=== PATIENT | male | born 1955 | race Caucasian/White ===

== ENCOUNTER 2017-02-04 08:33 | Day surgery (SDC) | payer MEDICARE ==
[~2017-02-04] VITALS: Ht 177.8 cm; Wt 75.6 kg
[2017-02-04] MEDS ORDERED: IOHEXOL 350 MG/ML 100 ML BTL (for Cath Lab) OTHER ONE (08:34)
[2017-02-04] MEDS ORDERED: IOHEXOL 350 MG/ML 50 ML BTL (for Cath Lab) OTHER ONE (08:34)
[2017-02-04] MEDS ORDERED: SODIUM CHLORIDE FLUSH BID IV FLUSH SCH (09:00)
[2017-02-04] MEDS ORDERED: SODIUM CHLOR 0.9% 1000 ML INJ 1,000 ML IV SCH (09:00)
[2017-02-04] MEDS ORDERED: SODIUM CHLORIDE FLUSH PRN IV FLUSH (09:00)
[2017-02-04] MEDS ORDERED: ROSU20 PO (09:10)
[2017-02-04] MEDS ORDERED: EZET10 PO (09:10)
[2017-02-04] MEDS ORDERED: LISI20TA PO (09:10)
[2017-02-04] MEDS ORDERED: NITR0.4S SL (09:10)
[2017-02-04] MEDS ORDERED: ASPI81TA23 PO (09:10)
[2017-02-04] MEDS ORDERED: MULT-65 PO (09:10)
[2017-02-04] MEDS ORDERED: PROZ20CA11 PO (09:10)
[2017-02-04] MEDS ORDERED: PLAV75TA29 PO (09:10)
[2017-02-04 09:12] VITALS: BP 131/79; PULSE 67; RESP 16; TEMP 98; O2SAT 99
[2017-02-04 09:24] LABS: AUTOMATED NEUTROPHIL # 10.3 TH/MM3 (1.8-7.7); BASOPHIL # 0.1 TH/MM3 (0-0.2); BASOPHIL % 0.5 % (0.0-2.0); EOSINOPHIL # 0.2 TH/MM3 (0-0.4); EOSINOPHIL % 1.6 % (0.0-4.0); HEMATOCRIT 42.8 % (39.0-51.0); HEMO FLAGS DIFF FINAL; LYMPH % 12.8 % (9.0-44.0); LYMPHOCYTE # 1.7 TH/MM3 (1.0-4.8); MEAN CELL VOLUME 90.7 FL (80.0-100.0); MEAN CORPUSCULAR HEMOGLOBIN 30.1 PG (27.0-34.0); MEAN CORPUSCULAR HGB CONC 33.2 % (32.0-36.0); MONO % 6.8 % (0.0-8.0); NEUT % 78.3 % (16.0-70.0); PLATELET COUNT 168 TH/MM3 (150-450); RED BLOOD COUNT 4.72 MIL/MM3 (4.50-5.90); RED CELL DISTRIBUTION WIDTH 13.8 % (11.6-17.2); WHITE BLOOD COUNT 13.1 TH/MM3 (4.0-11.0)
[2017-02-04 09:37] LABS: APTT (PATIENT) 29.1 SEC (24.3-30.1); INTERNATIONAL NORMALIZED RATIO 0.9 RATIO; PROTHROMBIN TIME - PATIENT 10.4 SEC (9.8-11.6)
[2017-02-04 09:50] LABS: BICARBONATE 28.4 MEQ/L (21.0-32.0)
[2017-02-04] MEDS ORDERED: HEPARIN-NS/PF INJ 1,000 ML ONE (11:14)
[2017-02-04] MEDS ORDERED: MIDAZOLAM HCL 2 MG/2 ML VIAL ONE (11:15)
[2017-02-04] MEDS ORDERED: HEPARIN SODIUM - IV 10,000 UNITS/10 ML VIAL ONE (11:24)
--- NOTE | 2017-02-04 12:34 | CATHPROC ---
[employer] HIS Report Study Information Study Number Admission Scheduled Start Study Start [id number] Feb 04 2017 8:33AM 02/04/2017 Feb 04 2017 11:08AM [place] Service Cath Endovascular Study Admit Source Facility Department Other [facility] - [facility] Supervisor Physician and Clinical Staff Initial Pastor Blue Gristmiller Silvana Pope BSN Recorder Adrianna Willingham,RT(R) (BS) Scrub David Irvin,RT(R) Procedures Performed Procedure Location (Site) Vessel Name Wire insertion Fem Art (left) Femoral Art Equipment Time Media Buyer Description Size Mfg Part Number Used/Scraped [id number] 11:57 ANGIO-DYNAMICS OMNI FLUSH 65CM CATHETER FR 5 Used *[id number] INTRODUCER SET, 11:50 [employer] FR 5 [id number] *[id number] Used MICROPUNCTURE, STIFFENED 532-113 11:46 CORDIS/ ARBEN RIM SUPER TORQUE CATHETER FR 5 Used *[id number] 11:25 MALLINCKRODT SYRINGE, ANGIOMAT 150ML 150ML [id number] Used [id number] 11:25 [employer] INDUSTRIES PACK, CCL CUSTOM * Used *[id number] 11:25 [employer] PACER PEN, SKIN DUAL W/ RULER * Used *[id number] 11:25 Radiation Monitoring Devices MEDICAL WIRE, EXCHANGE 260CM 3MMJ 260CM Used *[id number] 11:25 NAMIC MANIFOLD, 4 PORT * Used *[id number] 11:25 NAMIC TUBING, HIGH PRESSURE 48" 48" Used *[id number] 11:46 NAMIC TUBING, HIGH PRESSURE 48" 48" Used *[id number] 11:25 NYCOMED OMNIPAQUE, 300 MG, 150ML 150ML [id number] Used [id number] 11:25 WATKINS MEDICAL BLANKET,WARM AIR CCL * Used *[id number] 11:25 TERUMO MEDICAL SHEATH, FR5 TERUMO (10CM) FR 5 Used *[id number] WIRE, ANGLE GLIDE STIFF .035 [id number] 12:04 TERUMO MEDICAL/ARBEN 260CM Used 260CM *[id number] WIRE, ANGLED GLIDE .035 [id number] 11:45 TERUMO MEDICAL/ARBEN 260CM Used 260CM *[id number] History: Current Medications Medication Dosage/Unit Route Frequency Last Date/Time Taken Statins (any) ASA PLAVIX History: Allergies Allergy Reaction No Known Allergies History: Other Current Smoker Method Packs a Day Years Used Pack Years Yes Cigarettes 2 30 60 Labs Hgb (g/dl) Hct (%) WBC (l/cumm) Platelets (thousands) 11.60-17.00 35.00-51.00 4.00-11.00 150.00-450.00 14.2 42.3 13.1 168 Glucose (mg/dl) BUN (mg/dl) Creatinine (mg/dl) BUN:Creatinine (1:x) 74.00-106.00 7.00-18.00 0.50-1.30 10.00-20.00 99 19 0.9 21.1 Na (meq/l) K (meq/l) 136.00-145.00 3.50-5.10 138 4 INR (PTT:PT) 0.90-1.10 0.9 CPK-MB (ng/ML) 0.50-3.60 Not Drawn Medication Medication Total Dose (Bolus/Oral) Medication Total Dosage/Unit 1% XYLOCAINE 20 mL FENTANYL 50 mcg VERSED 1 mg Medications (Bolus/Oral) Medication Time Given Dosage/Unit Administered By Reason VERSED 02/04/2017 11:44:31 AM 1 mg Silvana Pope 1 mg VERSED given in lab by Silvana Pope BSN in Left Antecubital via Peripheral IV. FENTANYL 02/04/2017 11:44:43 AM 50 mcg Silvana Pope 50 mcg FENTANYL given in lab by Silvana Pope BSN in Left Antecubital via Peripheral IV. 1% XYLOCAINE 02/04/2017 11:45:15 AM 20 mL Pastor Zarate 20 mL 1% XYLOCAINE given in lab by Pastor Zarate in Right Groin via Subcutaneous. Medication (Drip) Medication Time Given Dosage/Unit Concentration/Unit Diluent (ml) Solution IV Solutions 02/04/2017 11:20:40 AM 0 mL (IV) 500 NaCl .9 IV Solutions given in lab by Silvana Pope BSN in Left Antecubital via Peripheral IV. Pump/Dri p Flow = 20 ml/hr using NaCl .9. Initial Case Assessment Cardiovascular HR NIBP 70 146/81 Edema Present Skin color Skin None Normal Warm Dry Circulatory - Right Pulses Dorsalis Pedis Femoral d 1 Scale (0,1,2,3,4,d) Circulatory - Left Pulses Dorsalis Pedis Femoral 2 3 Scale (0,1,2,3,4,d) Circulatory - Lower Extremities Color Lower Right Color Lower Left Normal Normal Neurological State Oriented to time-place- Alert Moves all extremities person Respiration - General Respiration Rate SpO2 (%) (B/min) 11 99 Chronological Log Time Study Chronological Log 11:08:43 Patient arrived via Bed. 11:12:31 Patient Name, D.O.B, / Armband Verified By R.N. 11:12:32 Consent signed by the physician and the patient and verified by the Solid Waste Division Supervisor staff. 11:12:33 Pre-op and post- op instructions given; patient acknowledges understanding of instructions. 11:12:33 Verbal Stimulation=2 Physical Stimulation=2 Airway=2 Respiration=2 TOTAL=8. (0=absent, 1=li mited, 2=present) 11:12:34 Presedation assessment performed by Solid Waste Division Supervisor RN. Vitals capture started with the following parameters, Patient=Adult, Interval=5 min, Initial Pr biygpv=305 mmHg, 11:19:44 Deflation Rate=5 mmHg, Cuff placed on Right Arm 11:20:30 Patient has been NPO for More than 6Hrs. 11:20:32 Patient Warmer Placed on the Table. 11:20:33 Skin Breakdown none per pt 11:20:37 [place] Prominences Protected 11:20:39 A # 20 IV was noted in the Antecubital (left). Grade = 0 IV Solutions given in lab by Silvana Pope BSN in Left Antecubital via Peripheral IV. Pu mp/Drip Flow = 20 ml/hr 11:20:40 using NaCl .9. 11:20:41 History and physical on the chart or being dictated. Assessment: Initial Case, HR=70 BPM, TTRK=446/81 mmhg, Edema=None, Color=Normal, Skin = Warm, D ry Right Pulses: Cooper Ped=d, Femoral=1 Left Pulses: Cooper Ped=2, Femoral=3 11:20:42 Lower Right Extremities: Color=Normal Lower Left Extremities: Color=Normal Neurological: State=Alert, Ox3, ROGERS Respiration: Resp=11 B/min, SpO2=99 % 11:20:49 HR=72 bpm, PRMJ=909/81 mmhg, KzU3=257.0 %, Resp=10 B/min, Pain=0, Ambreen=10, Robertson=2 11:22:34 Bilateral groins prepped with 2% chlorhexidine, and draped after a 3 minute waiting time. 11:25:22 HR=76 bpm, FKUB=517/79 mmhg, NdX6=201.0 %, Resp=12 B/min, Pain=0, Ambreen=10, Robertson=2 11:27:12 Reference ECG taken 11:27:59 MD arrived. 11:28:21 Pressure channel 1 zeroed. 11:30:23 HR=69 bpm, TYOF=079/75 mmhg, RzO9=777.0 %, Resp=11 B/min, Pain=0, Ambreen=10, Robertson=2 11:36:05 HR=77 bpm, QHKJ=999/76 mmhg, TmX8=668.0 %, Resp=10 B/min, Pain=0, Ambreen=10, Robertson=2 11:41:08 HR=71 bpm, DPHU=235/81 mmhg, SpO2=99.0 %, Resp=9 B/min, Pain=0, Ambreen=10, Robertson=2 Time Out. Correct patient, correct procedure, correct physician, power injector not loaded with contrast with surgical 11:42:56 team present. Time Out Concurred by MD and individual staff in procedure. 11:43:07 Case Start 11:44:31 1 mg VERSED given in lab by Silvana Pope BSN in Left Antecubital via Peripheral IV. 11:44:43 50 mcg FENTANYL given in lab by Silvana Pope BSN in Left Antecubital via Peripheral IV. 11:45:15 20 mL 1% XYLOCAINE given in lab by Pastor Zarate in Right Groin via Subcutaneous. 11:45:22 HR=80 bpm, ZDNV=485/58 mmhg, ScS1=492.0 %, Resp=8 B/min, Pain=0, Ambreen=10, Robertson=2 11:49:41 Access site was Left Femoral Artery. A INTRODUCER SET, MICROPUNCTURE, STIFFENED FR 5 was advanced into the Fem Art (right) using the 11:49:57 Percutaneous technique. A SHEATH, FR5 TERUMO (10CM) FR 5 was exchanged in the Fem Art (right). This was necessary in or heladio to 11:50:07 accomodate a larger catheter. 11:50:17 HR=73 bpm, UTQN=723/73 mmhg, SpO2=99.0 %, Resp=12 B/min, Pain=0, Ambreen=10, Robertson=2 11:55:20 HR=73 bpm, PTYH=792/71 mmhg, SpO2=97.0 %, Resp=13 B/min, Pain=0, Ambreen=10, Robertson=2 11:56:26 Through a sheath, The Femoral artery was injected with contrast. Injection continued the le g 11:57:13 A WIRE, ANGLED GLIDE .035 260CM 260CM was inserted via Fem Art (left). A OMNI FLUSH 65CM CATHETER FR 5 was advanced over a wire. OMNIPAQUE, 300 MG, 150ML 150ML was u sed for 11:57:32 injections. 12:00:17 HR=74 bpm, BEAM=943/72 mmhg, SpO2=97.0 %, Resp=21 B/min, Pain=0, Ambreen=10, Robertson=2 12:04:01 A WIRE, ANGLE GLIDE STIFF .035 260CM 260CM was inserted via Fem Art (left). 12:05:16 HR=80 bpm, OEOF=765/79 mmhg, SpO2=97.0 %, Resp=18 B/min, Pain=0, Ambreen=10, Robertson=2 12:10:21 HR=76 bpm, LQIR=303/69 mmhg, SpO2=98.0 %, Resp=12 B/min, Pain=0, Ambreen=10, Robertson=2 12:15:00 Through a OMNI FLUSH 65CM CATHETER FR 5, The Femoral artery was injected with contrast 12:15:22 HR=75 bpm, ILHN=145/65 mmhg, SpO2=95.0 %, Resp=26 B/min, Pain=0, Ambreen=10, Robertson=2 12:18:52 Case End 12:20:19 HR=76 bpm, JONJ=390/73 mmhg, SpO2=96.0 %, Resp=13 B/min, Pain=0, Ambreen=10, Robertson=2 12:20:28 Catheter was removed 12::38 Catheter(s) removed without difficulty 12::38 No case complications noted. 12:22:15 Bedside Report will be given. 12:25:20 HR=73 bpm, AWVT=301/73 mmhg, SpO2=97.0 %, Resp=15 B/min, Pain=0, Ambreen=10, Robertson=2 12:30:21 HR=80 bpm, OWHU=946/63 mmhg, SpO2=96.0 %, Resp=20 B/min, Pain=0, Ambreen=10, Robertson=2 12:30:49 Sterile dressing applied to site 12:32:01 Called DOCU. Spoke to Hien. Advised sheath is ready to be pulled. 12:33:02 Vitals capture stopped. 12:34:57 Patient moved to [facility] End Study - Contrast Media Used In Study Contrast Total Opened (mL) Total Used (mL) Total Wasted (mL) Omnipaque 105 105 0 End Study - Maximum Contrast Load Max Contrast Load (mL) 419.9 End Study - Radiation Exposure Fluoro Time (minutes) 7.9 End Study - Patient Disposition Complications Transferred To Interventional Outcome No Solid Waste Division Supervisor Holding No attempt made
[2017-02-04] MEDS ORDERED: MISC INFORMATION XX ONE (13:00)
[2017-02-04] MEDS ORDERED: oxyCODONE/ACETAMINOPHEN 5 MG/325 MG TAB PO PRN ×2 (13:00)
--- NOTE | 2017-02-04 23:42 | MA ---
cc: PASTOR DUNAWAY DO DATE OF PROCEDURE February 04, 2017 PROCEDURE Bilateral lower extremity peripheral angiogram, moderate sedation 34 minutes. PREPROCEDURE DIAGNOSIS Claudication right lower extremity. POSTPROCEDURE DIAGNOSIS Left lower extremity with awv-ui-xmifo vessel runoff and no significant disease, right iliac artery with moderate disease in the midportion and mild aneurysm, right COMPRESSOR STATION ENGINEER CHIEF with significant stenosis. MEDICATIONS Versed 1 milligram, Fentanyl 50 micrograms. CONTRAST USED 100 cc. FLUOROSCOPY 7.9 minutes. MODERATE SEDATION 34 minutes. ESTIMATED BLOOD LOSS 10 cc. PROCEDURAL SUMMARY Flex Flores is a pleasant 61-year-old male who sees my partner, Dr. Luther Leyva, in the office and was noted to have right lower extremity claudication. He has a known history of peripheral artery disease and because of this he was recommended peripheral angiogram. Risks, benefits and alternatives were explained to him and he consented as such. He was brought to the lab and prepped in the usual sterile fashion. Left femoral artery was accessed using a modified Seldinger technique and placement of a 5-Kittitian sheath. This was easily aspirated and flushed. Left lower extremity angiogram with runoff was done. A Rim catheter was advanced over a Glidewire and used to access the right lower extremity. This was advanced into the mid iliac for angiogram of the right lower extremity. Rim catheter was then removed over an angled Glidewire. The sheath was sutured into place with a plan for pressure to be held for hemostasis. The patient left the r and d lab technician cardiovascularly stable. FINDINGS The left lower extremity: Left common femoral artery with mild disease in the distal portion before takeoff of the SFA. Left SFA with no significant disease. Distally it trifurcates. With the anterior and posterior tibial runoff to the foot and peroneal vessel ___ cauterized in the distal lower extremity. The left iliac with mild disease throughout and a stent noted in the ostium from the takeoff of the aorta. Right lower extremity: Right iliac patent with an aneurysm noted in the midportion and just distal to this moderate disease. Right COMPRESSOR STATION ENGINEER CHIEF, subtotal occlusion. This reconstitutes early in the SFA. SFA runoff with no significant disease throughout the popliteal. Distally this trifurcates. There appears to be three-vessel runoff to the foot. IMPRESSION 1. 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 Also, with right common femoral artery subtotal occlusion. RECOMMENDATIONS 1. Mr. Flores appears to have significant COMPRESSOR STATION ENGINEER CHIEF disease which is most likely causing his claudication. 2. This was discussed and films were reviewed with Dr. Morris and he will see him for consideration of the right common femoral artery endarterectomy. 3. Mr. Flores is being worked up for a possible malignancy and because of this he will continue with his workup and follow up with Dr. Morris outpatient for consideration of his surgery. 4. He will be discharged home and follow up with Dr. Leyva for his cardiovascular issues. Thank you for allowing me to see Flex Flores. If there are any questions please do not hesitate to call. Pastor Dunaway DO VGP/EO /10:47 PM /11:26 PM
== END 2017-02-04 17:51 | disposition home or self-care (01) ==
LOC: HCAT 08:33 → HDIC 08:33 → HCAT 17:51
PROVIDERS: ATTEND Nuclear Medicine Nuclear Cardiology
DX: I70.211 Atherosclerosis of native arteries of extremities with intermittent claudication, right leg (principal); I10 Essential (primary) hypertension; I25.10 Atherosclerotic heart disease of native coronary artery without angina pectoris; E78.5 Hyperlipidemia, unspecified
CPT/HCPCS: 36246; 75716; 80048; 85025; 85610; 85730; 99152; 99153; C1769; C1893; J1644; J2250; J3010; Q9967

== ENCOUNTER 2017-03-02 13:01 | Day surgery (SDC) | payer MEDICARE ==
--- NOTE | 2017-02-27 08:50 | MH ---
cc: MALLY SHEEHAN,DAISHA MULLER MD, DATE OF ADMISSION: 03/02/2017 DATE OF 1955 CHIEF COMPLAINT The patient will come for bronchoscopy on 03/02/2017. HISTORY OF PRESENT ILLNESS Mr. Flores is a 61-year-old white male with longstanding history of smoking, continues to smoke one and a half pack of cigarettes a day. He has some neck discomfort and history of hemoptysis going on for the last 5-6 weeks. Denies any significant weight loss. Has cough small of sputum production. No fever or chills. No night sweats. The patient was seen by Dr. Muller. He had a CT scan of the neck done which shows that he has severe emphysema with possible cavitary mass in the right upper lobe with surrounding infiltrate. He had a CT scan of the chest done which shows right upper lobe infiltrate with COPD and emphysematous changes. PAST MEDICAL HISTORY History of COPD, hypertension, coronary artery disease status post stent placed in 2004. PAD status post stent placed in 2013. MEDICATIONS. 1. He takes aspirin 81 milligrams a day. 2. Plavix 75 milligrams a day. 3. Crestor 20 milligrams a day. 4. Zetia 10 milligrams a day. 5. Paxil 20 milligrams a day. 6. Lisinopril 20 milligrams a day. ALLERGIES NO KNOWN DRUG ALLERGIES. SOCIAL HISTORY He has history of smoking for 40 years, one and a half pack a day and continues to smoke. He used to drink before. No drug use. He is retired and disabled. 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 FAMILY HISTORY for 40 years. He has four children, one with cancer of the bladder. He has two brothers, one with heart disease. He has one sister who had abdominal aortic aneurysm stent. Mother is alive at 87. She has heart disease. Father with Alzheimer's. REVIEW OF SYSTEMS Denies any weight loss or fatigue. Has cough, hemoptysis, shortness of breath, heartburn, muscle pains. PHYSICAL EXAMINATION GENERAL: Elderly male not in acute distress. VITAL SIGNS: Blood pressure 130/64, heart rate 19, respirations 16, weight 174, oxygen saturation 96%. HEENT: Examination, pupils are equal and reactive to light. Oral mucosa and nasal mucosa normal. NECK: Supple. JVP not raised. CHEST: Air entry equal bilaterally. No rhonchi. CARDIOVASCULAR: S1-S2, S2 normal. ABDOMEN: Benign. EXTREMITIES: No edema. IMPRESSION 1. Right lower lobe infiltrate possible inflammatory process, however, need to rule out malignancy. 2. Hemoptysis. 3. COPD. 4. Nicotine use. 5. Coronary artery disease status post stent placement. 6. PAD status post stent placement. PLAN I discussed with the patient, he does not want to wait any longer for the procedure. He wants to proceed with bronchoscopy. I explained the procedure and the complications including complication of anesthesia, pneumothorax requiring chest tube, bleeding complication, injury to the blood vessels, lungs, nerves, arrhythmia, hypoxia and nondiagnostic biopsy. He understood and wants to proceed. Will hold Plavix for 5 days and he understands that he will be at increased risk of thromboembolic event while he is off Plavix. He is scheduled for bronchoscopy at [facility] on 03/02/2017. Followup in 2 weeks. MD KRISTA Roach/KAIDEN /9:06 PM /8:42 AM
[~2017-03-02] VITALS: Ht 177.8 cm; Wt 75.1 kg
[~2017-03-02 13:01] MED LIST: ASPI81TA23 PO; EZET10 PO; LIDOCAINE HCL 1% PF 5 ML SYRINGE OTHER ONE; LISI20TA PO; MIDAZOLAM HCL 2 MG/2 ML VIAL IV ONE; MULT-65 PO; NITR0.4S SL; PHENYLEPH/NS 1000 MCG/10 ML SYR IV ONE; PLAV75TA29 PO; PROPOFOL 200 MG/20 ML AMP IV ONE; PROZ20CA11 PO; ROSU20 PO; SUCCINYLCHOLINE CHLORIDE 100 MG/5 ML SYRINGE IV PUSH ONE; ceFAZolin INJ 1,000 MG VIAL IV ONE
[2017-03-02] MEDS ORDERED: SODIUM CHLORID 0.9% 500 ML IV PRN (14:15)
[2017-03-02] MEDS ORDERED: CHLORHEXIDINE GLUCONATE 2 % 1 PACK (2 CLOTHS) TOPICAL PRN (14:15)
[2017-03-02] MEDS ORDERED: LACTATED RINGER'S 1000 ML IV PRN (14:15)
[2017-03-02] MEDS ORDERED: POVIDONE IODINE 5% (ANTISEPSIS KIT) 4 APPLICATIONS EACH NARE PRN (14:15)
[2017-03-02] MEDS ORDERED: METOPROLOL TARTRATE 25 MG TAB PO PRN (14:15)
[2017-03-02] MEDS ORDERED: EPINEPHrine HCL (1:1000) 1 MG/ML VIAL ONE (16:02)
[2017-03-02] MEDS ORDERED: LIDOCAINE HCL 2% 50 ML VIAL ONE (16:02)
[2017-03-02 16:10] LABS: AUTOMATED NEUTROPHIL # 9.9 TH/MM3 (1.8-7.7); BASOPHIL # 0.1 TH/MM3 (0-0.2); BASOPHIL % 0.4 % (0.0-2.0); EOSINOPHIL # 0.1 TH/MM3 (0-0.4); EOSINOPHIL % 1.1 % (0.0-4.0); HEMATOCRIT 40.6 % (39.0-51.0); HEMO FLAGS DIFF FINAL; LYMPH % 15.3 % (9.0-44.0); MEAN CELL VOLUME 89.2 FL (80.0-100.0); MEAN CORPUSCULAR HEMOGLOBIN 30.2 PG (27.0-34.0); MEAN CORPUSCULAR HGB CONC 33.9 % (32.0-36.0); MONO % 6.2 % (0.0-8.0); PLATELET COUNT 156 TH/MM3 (150-450); RED BLOOD COUNT 4.55 MIL/MM3 (4.50-5.90); RED CELL DISTRIBUTION WIDTH 13.3 % (11.6-17.2); WHITE BLOOD COUNT 12.8 TH/MM3 (4.0-11.0)
[2017-03-02 16:22] LABS: APTT (PATIENT) 27.4 SEC (24.3-30.1); PROTHROMBIN TIME - PATIENT 10.5 SEC (9.8-11.6)
[2017-03-02] MEDS ORDERED: DO NOT ADM ANY ANTICOAGULANT DRUGS PRN (17:30)
--- NOTE | 2017-03-02 17:46 | RADRPT ---
EXAM DATE/TIME: 03/02/2017 17:08 [facility] COMPARISON: No previous studies available for comparison. INDICATIONS : Post bronchoscopy. MEDICAL HISTORY : None. SURGICAL HISTORY : None. ENCOUNTER: Initial ACUITY: 1 day PAIN SCORE: Non-responsive. LOCATION: Bilateral chest FINDINGS: Portable AP view of the chest demonstrates a normal-sized cardiac silhouette. EKG lines overlie the p atient. There is likely mild atelectasis at the lung bases. No effusion, consolidation, or pneumothor ax is identified. The bones and soft tissues demonstrate no acute finding. CONCLUSION: No acute finding is identified. No pneumothorax is visualized. Yogi Zaragoza MD on March 02, 2017 at 17:43 Board Certified Radiologist. This report was verified electronically.
[2017-03-02 18:25] VITALS: BP 126/68; PULSE 69; RESP 14; TEMP 98.1; O2SAT 94
--- NOTE | 2017-03-02 20:51 | MR ---
cc: MALLY SHEEHAN DATE 03/02/2017 PROCEDURE Bronchoscopy PREOPERATIVE DIAGNOSIS Hemoptysis and right upper lobe density. POSTOPERATIVE DIAGNOSIS No endobronchial lesions seen. No active bleeding seen. PROCEDURE DETAILS Informed consent was obtained from the patient. The procedure and the complications including complication of anesthesia, pneumothorax requiring chest tube, bleeding complication, injury to the blood vessels, lungs, nerves, arrhythmia were explained and he consented for the procedure. The patient brought to operating room. Under general anesthesia endotracheal tube was placed by anesthesia. Bronchoscopy was done through endotracheal tube. Main racquel is sharp. Bronchoscope advanced to the right. Right upper, lower and middle lobes were visualized. No endobronchial or mucosal lesion was seen. No bleeding was seen. Right upper lobe brushing biopsy and washings were done. He had a small amount of bleeding which was controlled with saline lavage. Then bronchoscope pulled back and advanced to the left lung. Left upper lingula, lower lobe were visualized. No endobronchial or mucosal lesion was seen. The patient tolerated the procedure well. Biopsy sent for pathology. Brushings sent for cytology. Washing is sent for cytology, routine culture, AFB fungal culture. A postprocedure chest x-ray ordered to rule out pneumothorax. MD KRISTA Roach/LESA /4:41 PM /8:38 PM
--- NOTE | 2017-03-03 14:35 | EKG ---
Date Performed: 03/02/2017 Time Performed: 14:29:37 PTAGE: 61 years EKG: Sinus rhythm WITH FREQUENT VENTRICULAR PREMATURE COMPLEXES POSSIBLE LEFT ATRIAL ENLARGEMENT POSSIBLE LEFT VENTRIC ULAR HYPERTROPHY NONSPECIFIC T-WAVE ABNORMALITY ABNORMAL ECG NO PREVIOUS TRACING DOCTOR: Carmen Guevara Interpretating Date/Time 03/03/2017 14:29:17
== END 2017-03-02 18:40 | disposition home or self-care (01) ==
LOC: HSDC 13:01
PROVIDERS: ATTEND Specialist
DX: R04.2 Hemoptysis (principal); J21.9 Acute bronchiolitis, unspecified; I10 Essential (primary) hypertension; I25.10 Atherosclerotic heart disease of native coronary artery without angina pectoris; I73.9 Peripheral vascular disease, unspecified; F17.200 Nicotine dependence, unspecified, uncomplicated; Z95.820 Peripheral vascular angioplasty status with implants and grafts; Z01.810 Encounter for preprocedural cardiovascular examination
CPT/HCPCS: 00520; 31623; 71010; 76000; 85025; 85610; 85730; 87015; 87070; 87102; 87116; 87205; 87206; 88112; 88305; 93005; J0330; J0690; J2250; J2370; J3010; J7120; J0171

== ENCOUNTER 2017-06-01 07:33 | Day surgery (SDC) | payer MEDICARE ==
[~2017-06-01] VITALS: Ht 179.1 cm; Wt 75.0 kg
[2017-06-01] VITALS (8 sets, daily range): BP systolic 102–159; BP diastolic 46–76; PULSE 40–89; RESP 16–20; TEMP 97.9–98; O2SAT 92–95
[~2017-06-01 07:33] MED LIST changes: -LIDOCAINE HCL 1% PF 5 ML SYRINGE OTHER ONE; -MIDAZOLAM HCL 2 MG/2 ML VIAL IV ONE; -PHENYLEPH/NS 1000 MCG/10 ML SYR IV ONE; -PROPOFOL 200 MG/20 ML AMP IV ONE; -SUCCINYLCHOLINE CHLORIDE 100 MG/5 ML SYRINGE IV PUSH ONE; -ceFAZolin INJ 1,000 MG VIAL IV ONE
[2017-06-01] MEDS ORDERED: SODIUM CHLOR 0.9% 1000 ML IV SCH (08:15)
[2017-06-01] MEDS ORDERED: MIDAZOLAM HCL 2 MG/2 ML VIAL ONE ×2 (08:24→08:56)
[2017-06-01] MEDS ORDERED: LIDOCAINE HCL 1% 20 ML VIAL ONE (08:29)
[2017-06-01] MEDS ORDERED: oxyCODONE/ACETAMINOPHEN 5 MG/325 MG TAB PO PRN (10:00)
--- NOTE | 2017-06-01 10:41 | RADRPT ---
EXAM DATE/TIME: 06/01/2017 08:54 [facility] COMPARISON: No previous studies available for comparison. INDICATIONS : Right lung mass. SEDATION TIME: 30 minutes BIOPSY SITE: Right MEDICATION(S): 1.) 3.5 mg midazolam (Versed) IV 2.) 175 mcg fentanyl (Sublimaze) IV DEVICE(S): 1.) 20 gauge Temno core biopsy needle MEDICAL HISTORY : Chronic obstructive pulmonary disease. Emphysema. Hypertension. SURGICAL HISTORY : None. ENCOUNTER: Initial ACUITY: 1 day PAIN SCORE: 0/10 LOCATION: Right chest A total of two core specimen(s) were obtained and sent to the laboratory for pathologic evaluation. PROCEDURE: 1. CT guided lung biopsy. 2. Conscious sedation with continuous EKG and oximetry monitoring. 3. EKG and oximetry remained stable throughout the procedure. Prior to the procedure informed consent was obtained. Any appropriate prior imaging studies were rev iewed. Using automated exposure control and adjustment of the mA and/or kV according to patient size, radiation dose was kept as low as reasonably achievable to obtain optimal diagnostic quality images. DICOM format image data is available electronically for review and comparison. The site was prepped in a sterile fashion. Full sterile technique was used, including cap, mask, felton rile gloves and gown and a large sterile sheet. Hand hygiene and 2% chlorhexidine and/or betadine/al cohol prep was utilized per protocol for cutaneous antisepsis. The skin and subcutaneous tissues wer e infiltrated with local anesthetic solution. With CT guidance the previously identified target was localized. Biopsy was performed using the presc ribed needle as above. 2 core samples were obtained. The first was used for a touch prep. Sample was deemed adequate by the attending catalog specialist. Because of the cavitary nature of the lesion, an FNA wa s also obtained and placed in a culture vial. Adequate hemostasis was obtained with compression at th e puncture site. Follow-up CT scan reveals no pneumothorax. Conscious sedation was performed with the prescribed dosages and duration as above in the presence of an independent trained radiology nurse to assist in the monitoring of the patient. EKG and oximetry remained stable throughout the procedure. The patient tolerated the procedure well and there were no complications. The patient was sent to Radiology Outpatient Unit in stable condition. CONCLUSION: Uncomplicated CT guided biopsy and FNA as above. Chavo Griffiths MD on June 01, 2017 at 10:23 Board Certified Radiologist. This report was verified electronically.
--- NOTE | 2017-06-01 11:33 | RADRPT ---
EXAM DATE/TIME: 06/01/2017 10:29 [facility] COMPARISON: No previous studies available for comparison. INDICATIONS : Status post right lung biopsy. MEDICAL HISTORY : Hypertension. SURGICAL HISTORY : Coronary artery stent. Abdominal aortic aneurysm repair. ENCOUNTER: Subsequent ACUITY: 1 day PAIN SCORE: 0/10 LOCATION: chest FINDINGS: A single frontal expiratory view of the chest was performed. The lungs are symmetrically aerated and clear. No evidence of pneumothorax. Mediastinal structures are in the midline. The cardio-mediastinal contours and bronchopulmonary markings are unremarkable for an expiratory exam . Osseous structures are intact. CONCLUSION: 1. No pneumothorax following lung biopsy. Blaise Fortune Jr., MD on June 01, 2017 at 11:29 Board Certified Radiologist. This report was verified electronically.
--- NOTE | 2017-06-04 13:22 | MH ---
cc: Arnel Lacey MD,Maribell Black,Calvin Aguilar,Carter Foster MD DATE OF ADMISSION: 06/01/2017 CHIEF COMPLAINT: Patient will come for CT-guided lung biopsy of the right upper lobe. HISTORY OF PRESENT ILLNESS: Mr. Flores is 61-year-old white male with longstanding history of COPD with right upper lobe . He had a bronchoscopy done recently and did not show any endobronchial lesion, and bronchial washings were negative. He was taking Plavix. He talked to his surgery specialist, and the Plavix has been discontinued. He had a PET scan done, which was that he has persistent infiltrate in the posterior right upper lobe of the lung with focal area of cavitation and has hypermetabolic activity, which measures SUV 7.4. He has chronic interstitial infiltrate, which is much intense with SUV 8.6. No axillary lymphadenopathy. PAST MEDICAL HISTORY: Significant for history of COPD, hypertension, coronary artery disease status post stent placed, PAD status post stent placed. MEDICATIONS: He is taking aspirin, Crestor 20 mg, Zetia 20 mg, Paxil 20 mg, lisinopril once a day. ALLERGIES: NO KNOWN DRUG ALLERGY. SOCIAL HISTORY: He has history of smoking for 40 years, 1-1/2 packs a day. He used to drink before. No drug use. He is retired and disabled. 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 FAMILY HISTORY: He is for 40 years. He has 4 children. One with cancer of the bladder. He has 2 brothers. One with heart disease. He has 1 sister who had abdominal aortic aneurysm stent. Mother is alive at 87. Father with Alzheimer's. REVIEW OF SYSTEMS: He has intermittent mild blood-tinged sputum. No fever. No chest pain. It is stable. PHYSICAL EXAMINATION: Elderly male not in any acute distress. Blood pressure 126/70, heart rate 68, respirations 16. Weight 166.6. Oxygen saturation 96%. HEENT: Unremarkable. NECK: No JVD noted. CHEST: Lungs clear bilaterally, no rhonchi. CARDIOVASCULAR: S1, S2 normal. ABDOMEN: Benign. EXTREMITIES: No edema. IMPRESSION: 1. Right upper lobe cavitary infiltrate with hypermetabolic activity, concerning for malignancy. 2. Chronic obstructive pulmonary disease. 3. Mild hemoptysis. 4. Hypertension. 5. Coronary artery disease. PLAN: I discussed with patient and his , who is a nurse, at the bedside and explained that he will need to have a CT-guided lung biopsy. Explained the procedure and the complications, including complication of right hemopneumothorax, clotting chest tube, bleeding complication, and possibility of nondiagnostic biopsy. Patient wants to initiate consultation with an oncologist and thoracic surgeon, though we do not have the definite diagnosis yet. I will refer him to Dr. Maribell Jessica and Dr. Carter Aguilar, and he will be scheduled for CT-guided lung biopsy of the right upper lobe at [facility]. MD KRISTA Roach/CROW , 07:49 AM , 09:16 AM
== END 2017-06-01 13:20 | disposition home or self-care (01) ==
LOC: HRAD 07:33 → HRIP 07:36 → HRAD 13:20
PROVIDERS: ATTEND Specialist
DX: R91.8 Other nonspecific abnormal finding of lung field (principal); J44.9 Chronic obstructive pulmonary disease, unspecified; I10 Essential (primary) hypertension
CPT/HCPCS: 32405; 71045; 77012; 87015; 87070; 87102; 87116; 87205; 87206; 88305; 88333; 88341; 88342; J2250; J3010; 88360

== ENCOUNTER → 2017-06-15 | Outpatient (CLI) | payer MEDICARE ==
--- NOTE | 2017-06-16 10:26 | RSPPFT ---
DATE OF PROCEDURE: 06/12/17 COMMENTS: VOLUMES DYNAMIC: FVC and FEV1 normal. FLOWS: FEV1% normal; FEF 25-75 mildly reduced. IMPRESSION: Very mild obstructive ventilatory defect.
== END ==
LOC: HRSP 10:40
PROVIDERS: ATTEND Thoracic Surgery (Cardiothoracic Vascular Surgery)
DX: C34.11 Malignant neoplasm of upper lobe, right bronchus or lung (principal); J43.9 Emphysema, unspecified
CPT/HCPCS: 94010

== ENCOUNTER → 2017-06-22 | Outpatient (CLI) | payer MEDICARE ==
[~2017-06-22] MED LIST changes: +DOCU1CAP26 PO; +OXYC1TAB35 PO; +OXYGENDME NAS.CANULA
[2017-06-22 14:04] LABS: HEMATOCRIT 40.2 % (39.0-51.0); HEMOGLOBIN 13.3 GM/DL (13.0-17.0); MEAN CELL VOLUME 90.7 FL (80.0-100.0); MEAN CORPUSCULAR HEMOGLOBIN 30.1 PG (27.0-34.0); MEAN CORPUSCULAR HGB CONC 33.2 % (32.0-36.0); MEAN PLATELET VOLUME 9.1 FL (7.0-11.0); PLATELET COUNT 190 TH/MM3 (150-450); RED BLOOD COUNT 4.43 MIL/MM3 (4.50-5.90); RED CELL DISTRIBUTION WIDTH 14.3 % (11.6-17.2)
[2017-06-22 14:09] LABS: BILIRUBIN, URINE NEG (NEG); BLOOD, URINE NEG (NEG); GLUCOSE,URINE NEG (NEG); KETONE, URINE NEG (NEG); NITRITE,URINE NEG (NEG); URINE COLOR YELLOW (YELLW/STRAW); URINE LEUKOCYTE ESTERASE TRACE (NEG)
[2017-06-22 14:34] LABS: BICARBONATE 26.3 MEQ/L (21.0-32.0); CALCIUM 9.1 MG/DL (8.5-10.1); CREATININE 1.05 MG/DL (0.60-1.30)
--- NOTE | 2017-06-22 15:32 | RADRPT ---
EXAM DATE/TIME: 06/22/2017 14:03 [facility] COMPARISON: CT NEEDLE BIOPSY LUNG, RIGHT, June 01, 2017, 8:54. INDICATIONS : Preop, Right thoracotmy MEDICAL HISTORY : Chronic obstructive pulmonary disease. Emphysema. Hypertension. SURGICAL HISTORY : None. ENCOUNTER: Initial ACUITY: 1 day PAIN SCORE: 0/10 LOCATION: chest FINDINGS: Lungs are hyperinflated. There is persistent right upper lobe parenchymal opacity which was identifie d during CT guided biopsy. The left lung is clear. Heart and mediastinal structures are stable. CONCLUSION: 1. Right upper lobe parenchymal opacities similar to that seen on recent CT guided biopsy. 2. COPD. 3. No evidence of new parenchymal abnormality or pneumothorax. Victor M Wallis MD on June 22, 2017 at 15:27 Board Certified Radiologist. This report was verified electronically.
--- NOTE | 2017-06-23 16:22 | EKG ---
Date Performed: 06/22/2017 Time Performed: 13:21:56 PTAGE: 61 years EKG: Sinus rhythm POSSIBLE RIGHT ATRIAL ENLARGEMENT LEFT ATRIAL ENLARGEMENT NONSPECIFIC T-WAVE ABNORMALITY ABNORMAL EC G PREVIOUS TRACING 03/02/2017 Atrial complexes have changed since prior tracing. Clinical correl ation is recommended DOCTOR: Khari Hazel Interpretating Date/Time 06/23/2017 16:21:04
== END ==
LOC: CPRE 13:01
PROVIDERS: ATTEND Thoracic Surgery (Cardiothoracic Vascular Surgery)
DX: Z01.812 Encounter for preprocedural laboratory examination (principal); Z01.811 Encounter for preprocedural respiratory examination; Z01.810 Encounter for preprocedural cardiovascular examination; C34.11 Malignant neoplasm of upper lobe, right bronchus or lung; J43.9 Emphysema, unspecified; R94.31 Abnormal electrocardiogram [ECG] [EKG]; Z79.01 Long term (current) use of anticoagulants
CPT/HCPCS: 36415; 71046; 80048; 81001; 85027; 85610; 85730; 93005

== ENCOUNTER 2017-06-25 05:26 | Inpatient (IN) | payer MEDICARE ==
[~2017-06-25] VITALS: Ht 180.3 cm; Wt 80.0 kg
[2017-06-25] VITALS (13 sets, daily range): BP systolic 107–128; BP diastolic 54–62; PULSE 74–97; RESP 20; TEMP 98.1–98.7; O2SAT 96–97
[~2017-06-25 05:26] MED LIST changes: -DOCU1CAP26 PO; -OXYC1TAB35 PO; -OXYGENDME NAS.CANULA
[2017-06-25] MEDS ORDERED: SODIUM CHLORID 0.9% 500 ML IV PRN (05:45)
[2017-06-25] MEDS ORDERED: METOPROLOL TARTRATE 25 MG TAB PO PRN (05:45)
[2017-06-25] MEDS ORDERED: POVIDONE IODINE 5% (ANTISEPSIS KIT) 4 APPLICATIONS EACH NARE PRN (05:45)
[2017-06-25] MEDS ORDERED: CHLORHEXIDINE GLUCONATE 2 % 1 PACK (2 CLOTHS) TOPICAL PRN (05:45)
[2017-06-25] MEDS: LACTATED RINGER'S 1000 ML IV PRN (06:10)
[2017-06-25] MEDS ORDERED: ACETAMINOPHEN 1000 MG/100 ML 100 ML IV ONE (07:11)
[2017-06-25] MEDS ORDERED: BUPIVACAINE LIPOSO PF 1.3% INJ 20 ML, DEXAMETHASONE INJ 4 MG, MORPHINE INJ 8 MG in SODI... IRRIGATION SCH (07:15)
[2017-06-25] MEDS ORDERED: ceFAZolin 2 GM PREMIX 50 ML IV ONE (09:10)
[2017-06-25] MEDS ORDERED: NALOXONE HCL 0.4 MG/ML AMP IV PUSH PRN (10:45)
[2017-06-25] MEDS ORDERED: Post-op Orders (for Pharmacy) OTHER ONE (10:45)
[2017-06-25] MEDS ORDERED: RESP: ALBUTEROL 2.5 MG/3 ML NEB (PRN) NEB (10:45)
[2017-06-25] MEDS ORDERED: ACETAMINOPHEN 325 MG TAB PO PRN (10:45)
[2017-06-25] MEDS ORDERED: ONDANSETRON HCL 4 MG/2 ML VIAL IV PUSH PRN (10:45)
[2017-06-25] MEDS ORDERED: SODIUM CHLORIDE 0.9% FLUSH 10 ML FLUSH IV FLUSH PRN (10:45)
[2017-06-25] MEDS ORDERED: NITROGLYCERIN 0.4 MG SL 25 TABS/BTL SL PRN (10:45)
[2017-06-25] MEDS ORDERED: MAGNESIUM HYDROXIDE SUSP 30 ML CUP PO PRN (10:45)
[2017-06-25] MEDS: KETOROLAC TROMETHAMINE 30 MG/ML (IVP) VIAL IV PUSH SCH ×3 (11:05→22:01)
[2017-06-25] MEDS ORDERED: MIDAZOLAM HCL 2 MG/2 ML VIAL ONE (11:08)
--- NOTE | 2017-06-25 11:10 | PD.OP ---
cc: Arnel Lacey MD; Maribell Jessica MD; Carter Aguilar MD Operative Report Date of Surgery: Jun 25, 2017 Preoperative Diagnosis: (1) Lung cancer, upper lobe Postoperative Diagnosis: same Procedure: Right Thoracotomy, right upper lobectomy Anesthesia: Dr. Dye Surgeon: Maribell Jessica Riffler Tender(s): Vandana Adams, NASREEN Operation and Findings: Specimen: right upper lobe, level 10 lymph node, staple line lymph node Drains: 32F chest tube Procedure Details After adequate general anesthesia the patient was placed in the left lateral decubitus position and the right chest was prepped and draped in usual manner. A small posterolateral thoracotomy incision was performed and electrocautery was used to obtain hemostasis and carry the dissection down through the latissimus dorsi. The serratus anterior was retracted anteriorly and the 5th intercostal space was entered under direct vision and selective single lung ventilation. A retractor was placed after shingling the 5th rib posteriorly. Exploration of the right hemithorax was significant for a ~2cm mass in the right upper lobe. The major fissure was developed using electrocautery and sharp dissection. The pleural reflection was divided anteriorly from the major fissure up and around posteriorly. The posterior segmental artery was isolated initially and ligated and divided using 2-0 silk and a 3-0 silk suture ligature. The right superior pulmonary vein was isolated and divides using a endo-JORY vascular stapler. The remaining segmental arterial branches were ligated and divided in a similar manner. The right upper lobe bronchus was isolated and divided using an endo JORY stapler. The specimen was submitted to pathology for permanent section. Additionally, two level 10 lymph nodes as well as a lymph node at the bronchial staple line were resected and submitted for permanent section. A 32 Haitian chest tube was then placed through separate stab incisions anteriorly and each secured with 0 silk suture. Esparel was used to block T4-T6 for postop analgesia.. The lung was ventilated and no significant air leaks were found. The wound was closed in layers approximately in the ribs initially with a 2. Vicryl [id number] suture. The latissimus dorsi was reapproximated using a running 0 Vicryl suture. The subcutaneous tissues approximated running 2-0 Vicryl suture and the skin was approximated using running 4-0 Monocryl subcuticular stitch. All sponges history counts were correct at the close the procedure and the patient was transferred to the PACU for recovery purposes. Maribell Jessica MD Jun 25, 2017 11:10
--- NOTE | 2017-06-25 11:38 | RADRPT ---
EXAM DATE/TIME: 06/25/2017 11:23 [facility] COMPARISON: CHEST SINGLE AP, March 02, 2017, 17:08. INDICATIONS : S/p thoracotomy MEDICAL HISTORY : Chronic obstructive pulmonary disease. Hypertension emphysema SURGICAL HISTORY : None. ENCOUNTER: Initial ACUITY: 3 days PAIN SCORE: 0/10 LOCATION: Bilateral chest FINDINGS: There is a right chest tube in place. No definite pneumothorax is seen. There is some interstitial ch anges bilaterally. The left lung is grossly clear. There are no pleural effusions. The heart size is enlarged but stable. CONCLUSION: Right chest tube in place. No definite pneumothorax. Chepe Ivan MD on June 25, 2017 at 11:35 Board Certified Radiologist. This report was verified electronically.
[2017-06-25] MEDS: MORPHINE SULFATE 30 MG/30 ML PCA IV SCH (11:46)
[2017-06-25] MEDS ORDERED: ceFAZolin INJ 1,000 MG VIAL IV ONE (12:00)
[2017-06-25] MEDS ORDERED: PROPOFOL 200 MG/20 ML AMP IV ONE (12:00)
[2017-06-25] MEDS ORDERED: ROCURONIUM INJ 50 MG/5 ML SYRINGE IV PUSH ONE (12:00)
[2017-06-25] MEDS ORDERED: MULTIPLE ELECTROLYTES IV ONE (12:00)
[2017-06-25] MEDS ORDERED: ONDANSETRON HCL 4 MG/2 ML VIAL IV ONE (12:00)
[2017-06-25] MEDS ORDERED: PHENYLEPH/NS 1000 MCG/10 ML SYR IV ONE (12:00)
[2017-06-25] MEDS ORDERED: SODIUM CHLORID 0.9% 500 ML INJ 500 ML IV ONE (12:00)
[2017-06-25] MEDS ORDERED: NEOSTIGMINE 5 MG/5 ML SYRINGE IV PUSH ONE (12:00)
[2017-06-25] MEDS ORDERED: ePHEDrine/NS 25 MG/5 ML SYRINGE IV ONE (12:00)
[2017-06-25] MEDS ORDERED: LIDOCAINE HCL 1% PF 5 ML SYRINGE OTHER ONE (12:00)
[2017-06-25] MEDS ORDERED: GLYCOPYRROLATE 1 MG/5 ML SYRINGE IV PUSH ONE (12:00)
[2017-06-25] MEDS ORDERED: SODIUM CHLOR 0.9% 250 ML INJ 250 ML IV ONE ×3 (12:00→19:00)
[2017-06-25 12:52] LABS: AUTOMATED NEUTROPHIL # 14.5 TH/MM3 (1.8-7.7); BASOPHIL % 0.2 % (0.0-2.0); EOSINOPHIL % 0.2 % (0.0-4.0); HEMATOCRIT 33.7 % (39.0-51.0); HEMOGLOBIN 11.4 GM/DL (13.0-17.0); LYMPH % 5.1 % (9.0-44.0); LYMPHOCYTE # 0.8 TH/MM3 (1.0-4.8); MEAN CORPUSCULAR HEMOGLOBIN 30.2 PG (27.0-34.0); MONO % 4.1 % (0.0-8.0); MONOCYTE # 0.7 TH/MM3 (0-0.9); NEUT % 90.4 % (16.0-70.0); PLATELET COUNT 154 TH/MM3 (150-450); RED BLOOD COUNT 3.78 MIL/MM3 (4.50-5.90); RED CELL DISTRIBUTION WIDTH 14.4 % (11.6-17.2); WHITE BLOOD COUNT 16.1 TH/MM3 (4.0-11.0)
[2017-06-25] MEDS: PCA - TOTAL MG MORPHINE DELIVERED PER SHIFT SCH ×2 (13:59→22:00)
[2017-06-25] MEDS: RESP: ALBUTEROL 2.5 MG/3 ML NEB (SCH) NEB ×2 (17:22→21:35)
[2017-06-25] MEDS ORDERED: DO NOT ADM ANY ANTICOAGULANT DRUGS PRN (18:45)
[2017-06-25] MEDS ORDERED: FUROSEMIDE 40 MG/4 ML VIAL IV PUSH ONE (18:45)
[2017-06-25] MEDS: RESP: BUDESONIDE 0.5 MG/2 ML NEB NEB SCH (21:35)
[2017-06-25] MEDS: DOCUSATE CALCIUM 240 MG CAP PO SCH (22:00)
[2017-06-25] MEDS: SODIUM CHLORIDE 0.9% FLUSH 10 ML FLUSH IV FLUSH SCH (22:00)
[2017-06-25] MEDS: HYDROCHLOROTHIAZIDE 12.5 MG CAP PO SCH (22:00)
[2017-06-25] MEDS: PANTOPRAZOLE SOD 40 MG DELAYED RELEASE TAB PO SCH (22:00)
[2017-06-25] MEDS: LISINOPRIL 20 MG TAB PO SCH (22:01)
[2017-06-26] VITALS (25 sets, daily range): BP systolic 100–160; BP diastolic 56–87; PULSE 80–112; RESP 18–20; TEMP 97.6–99; O2SAT 92–98
[2017-06-26] MEDS: LACTATED RINGER'S 1000 ML IV PRN (00:28)
[2017-06-26] MEDS: RESP: ALBUTEROL 2.5 MG/3 ML NEB (SCH) NEB ×4 (02:49→19:59)
[2017-06-26 04:48] LABS: AUTOMATED NEUTROPHIL # 11.3 TH/MM3 (1.8-7.7); BASOPHIL % 0.2 % (0.0-2.0); EOSINOPHIL # 0.1 TH/MM3 (0-0.4); EOSINOPHIL % 0.6 % (0.0-4.0); HEMATOCRIT 34.9 % (39.0-51.0); HEMOGLOBIN 11.9 GM/DL (13.0-17.0); LYMPH % 12.6 % (9.0-44.0); LYMPHOCYTE # 1.8 TH/MM3 (1.0-4.8); MEAN CELL VOLUME 89.1 FL (80.0-100.0); MEAN CORPUSCULAR HEMOGLOBIN 30.4 PG (27.0-34.0); MEAN CORPUSCULAR HGB CONC 34.1 % (32.0-36.0); MONO % 6.9 % (0.0-8.0); NEUT % 79.7 % (16.0-70.0); PLATELET COUNT 154 TH/MM3 (150-450); RED BLOOD COUNT 3.92 MIL/MM3 (4.50-5.90); RED CELL DISTRIBUTION WIDTH 14.4 % (11.6-17.2); WHITE BLOOD COUNT 14.2 TH/MM3 (4.0-11.0)
[2017-06-26 05:09] LABS: BICARBONATE 31.6 MEQ/L (21.0-32.0); CALCIUM 8.3 MG/DL (8.5-10.1); CREATININE 0.99 MG/DL (0.60-1.30)
[2017-06-26] MEDS: PCA - TOTAL MG MORPHINE DELIVERED PER SHIFT SCH ×2 (05:56→21:28)
[2017-06-26] MEDS: KETOROLAC TROMETHAMINE 30 MG/ML (IVP) VIAL IV PUSH SCH (05:59)
--- NOTE | 2017-06-26 06:01 | RADRPT ---
EXAM DATE/TIME: 06/26/2017 05:09 [facility] COMPARISON: No previous studies available for comparison. INDICATIONS : Status post thoracotomy. MEDICAL HISTORY : Chronic obstructive pulmonary disease. Hypertension. Emphysema. SURGICAL HISTORY : None. ENCOUNTER: Subsequent ACUITY: 4 - 6 days PAIN SCORE: 0/10 LOCATION: chest FINDINGS: Surgical changes of the right chest with a chest tube again seen. No pneumothorax. Mild left base atelectasis, slightly worse. Heart size stable, within normal limits. CONCLUSION: Recent surgical changes on the right with a chest tube. No pneumothorax. Mild left base atelectasis d eveloping. Yogi Morejon MD on June 26, 2017 at 5:58 Board Certified Radiologist. This report was verified electronically.
[2017-06-26] MEDS: RESP: BUDESONIDE 0.5 MG/2 ML NEB NEB SCH ×2 (09:15→20:00)
[2017-06-26] MEDS: MULTIVITAMIN TAB PO SCH (09:55)
[2017-06-26] MEDS: ASPIRIN EC 81 MG TABEC PO SCH (09:55)
[2017-06-26] MEDS: SODIUM CHLORIDE 0.9% FLUSH 10 ML FLUSH IV FLUSH SCH ×2 (09:55→21:29)
[2017-06-26] MEDS: HYDROCHLOROTHIAZIDE 12.5 MG CAP PO SCH ×2 (09:55→21:31)
[2017-06-26] MEDS: EZETIMIBE 10 MG TAB PO SCH (09:56)
[2017-06-26] MEDS: FLUoxetine HCL 20 MG CAP PO SCH (09:56)
[2017-06-26] MEDS: LISINOPRIL 20 MG TAB PO SCH ×2 (09:56→21:29)
[2017-06-26] MEDS: ATORVASTATIN 40 MG TAB PO SCH (09:57)
[2017-06-26] MEDS: MORPHINE SULFATE 30 MG/30 ML PCA IV SCH (10:14)
--- NOTE | 2017-06-26 14:48 | PD.CAR.PN ---
CVT Progress Note Subjective/Hospital Course: Mr. Flores is 61-year-old white male with longstanding history of COPD with right upper lobe . He had a bronchoscopy done recently and did not show any endobronchial lesion, and bronchial washings were negative. He had a PET scan done, which was that he has persistent infiltrate in the posterior right upper lobe of the lung with focal area of cavitation and has hypermetabolic activity, which measures SUV 7.4. He has chronic interstitial infiltrate, which is much intense with SUV 8.6. No axillary lymphadenopathy. Right upper lobe cancer PAST MEDICAL HISTORY: Significant for history of COPD, hypertension, coronary artery disease status post stent placed, PAD status post stent placed. surgery: 06/26 Right Thoracotomy, right upper lobectomy Objective: Vital Signs Date Time Temp Pulse Resp B/P (MAP) Pulse Ox O2 Delivery O2 Flow Rate FiO2 06/26/17 11:30 95 Nasal Cannula 2.00 06/26/17 11:30 97.6 102 20 108/63 (78) 95 06/26/17 11:30 102 06/26/17 10:14 18 06/26/17 09:16 98 Nasal Cannula 2.00 06/26/17 07:39 102 06/26/17 07:39 92 Nasal Cannula 2.00 06/26/17 07:39 98.4 102 18 114/70 (85) 92 06/26/17 06:03 93 06/26/17 05:56 20 06/26/17 05:07 97 06/26/17 04:00 89 06/26/17 03:00 98.4 84 128/64 (85) 94 06/26/17 03:00 89 06/26/17 02:00 81 06/26/17 01:00 81 06/26/17 00:00 80 06/25/17 23:46 18 06/25/17 23:00 98.1 79 128/62 (84) 96 06/25/17 23:00 86 06/25/17 23:00 96 Nasal Cannula 1.50 06/25/17 22:00 94 06/25/17 22:00 20 06/25/17 21:00 82 06/25/17 20:00 82 06/25/17 19:00 96 Nasal Cannula 2.00 06/25/17 19:00 98.2 85 107/54 (71) 96 06/25/17:00 88 06/25/17 18:00 97 06/25/17 17:27 96 Nasal Cannula 2.50 06/25/17 17:00 79 06/25/17 16:00 81 06/25/17 15:00 77 06/25/17 15:00 98.1 74 20 112/60 (18) 96 Labs: Laboratory Tests Test 06/26/17 04:05 White Blood Count 14.2 TH/MM3 (4.0-11.0) Red Blood Count 3.92 MIL/MM3 (4.50-5.90) Hemoglobin 11.9 GM/DL (13.0-17.0) Hematocrit 34.9 % (39.0-51.0) Mean Corpuscular Volume 89.1 FL (80.0-100.0) Mean Corpuscular Hemoglobin 30.4 PG (27.0-34.0) Mean Corpuscular Hemoglobin Concent 34.1 % (32.0-36.0) Red Cell Distribution Width 14.4 % (11.6-17.2) Platelet Count 154 TH/MM3 (150-450) Mean Platelet Volume 9.0 FL (7.0-11.0) Neutrophils (%) (Auto) 79.7 % (16.0-70.0) Lymphocytes (%) (Auto) 12.6 % (9.0-44.0) Monocytes (%) (Auto) 6.9 % (0.0-8.0) Eosinophils (%) (Auto) 0.6 % (0.0-4.0) Basophils (%) (Auto) 0.2 % (0.0-2.0) Neutrophils # (Auto) 11.3 TH/MM3 (1.8-7.7) Lymphocytes # (Auto) 1.8 TH/MM3 (1.0-4.8) Monocytes # (Auto) 1.0 TH/MM3 (0-0.9) Eosinophils # (Auto) 0.1 TH/MM3 (0-0.4) Basophils # (Auto) 0.0 TH/MM3 (0-0.2) CBC Comment DIFF FINAL Differential Comment Blood Urea Nitrogen 16 MG/DL (7-18) Creatinine 0.99 MG/DL (0.60-1.30) Random Glucose 114 MG/DL (74-106) Calcium Level 8.3 MG/DL (8.5-10.1) Sodium Level 139 MEQ/L (136-145) Potassium Level 4.2 MEQ/L (3.5-5.1) Chloride Level 102 MEQ/L (98-107) Carbon Dioxide Level 31.6 MEQ/L (21.0-32.0) Anion Gap 5 MEQ/L (5-15) Estimat Glomerular Filtration Rate 76 ML/MIN (>89) Result Diagram: 06/26/17 0405 06/26/17 0405 Valencia Weston Jun 26, 2017 14:48
--- NOTE | 2017-06-26 14:52 | PD.CAR.PN ---
CVT Progress Note Subjective/Hospital Course: Mr. Flores is 61-year-old white male with longstanding history of COPD with right upper lobe . He had a bronchoscopy done recently and did not show any endobronchial lesion, and bronchial washings were negative. He had a PET scan done, which was that he has persistent infiltrate in the posterior right upper lobe of the lung with focal area of cavitation and has hypermetabolic activity, which measures SUV 7.4. He has chronic interstitial infiltrate, which is much intense with SUV 8.6. No axillary lymphadenopathy. Right upper lobe cancer PAST MEDICAL HISTORY: Significant for history of COPD, hypertension, coronary artery disease status post stent placed, PAD status post stent placed. surgery: 06/25 Right Thoracotomy, right upper lobectomy 06/26 chest tube to water seal , no air leak drained 50cc/ 12 hrs eval for removal in am using CONSUMER AFFAIRS DIRECTOR for pain control Objective: GENERAL: A&O x 3 SKIN: Warm and dry.incision intact and well approximated right postero lateral chest HEAD: Normocephalic. EYES: No scleral icterus. No injection or drainage. NECK: Supple, trachea midline. No JVD or lymphadenopathy. CARDIOVASCULAR: Regular rate and rhythm without murmurs, gallops, or rubs. RESPIRATORY: Breath sounds equal bilaterally. No accessory muscle use. chest tube to water seal, no air leak GASTROINTESTINAL: Abdomen soft, non-tender, nondistended. MUSCULOSKELETAL: No cyanosis, or edema. BACK: Nontender without obvious deformity. No CVA tenderness. Vital Signs Date Time Temp Pulse Resp B/P (MAP) Pulse Ox O2 Delivery O2 Flow Rate FiO2 06/26/17 11:30 95 Nasal Cannula 2.00 06/26/17 11:30 97.6 102 20 108/63 (78) 95 06/26/17 11:30 102 06/26/17 10:14 18 06/26/17 09:16 98 Nasal Cannula 2.00 06/26/17 07:39 102 06/26/17 07:39 92 Nasal Cannula 2.00 06/26/17 07:39 98.4 102 18 114/70 (85) 92 06/26/17 06:03 93 06/26/17 05:56 20 06/26/17 05:07 97 06/26/17 04:00 89 06/26/17 03:00 98.4 84 128/64 (85) 94 06/26/17 03:00 89 06/26/17 02:00 81 06/26/17 01:00 81 06/26/17 00:00 80 06/25/17 23:46 18 06/25/17 23:00 98.1 79 128/62 (84) 96 06/25/17 23:00 86 06/25/17 23:00 96 Nasal Cannula 1.50 06/25/17 22:00 94 06/25/17 22:00 20 06/25/17 21:00 82 06/25/17 20:00 82 06/25/17 19:00 96 Nasal Cannula 2.00 06/25/17 19:00 98.2 85 107/54 (71) 96 06/25/17 19:00 88 06/25/17 18:00 97 06/25/17 17:27 96 Nasal Cannula 2.50 06/25/17 17:00 79 06/25/17 16:00 81 06/25/17 15:00 77 06/25/17 15:00 98.1 74 20 112/60 (77) 96 Labs: Laboratory Tests Test 06/26/17 04:05 White Blood Count 14.2 TH/MM3 (4.0-11.0) Red Blood Count 3.92 MIL/MM3 (4.50-5.90) Hemoglobin 11.9 GM/DL (13.0-17.0) Hematocrit 34.9 % (39.0-51.0) Mean Corpuscular Volume 89.1 FL (80.0-100.0) Mean Corpuscular Hemoglobin 30.4 PG (27.0-34.0) Mean Corpuscular Hemoglobin Concent 34.1 % (32.0-36.0) Red Cell Distribution Width 14.4 % (11.6-17.2) Platelet Count 154 TH/MM3 (150-450) Mean Platelet Volume 9.0 FL (7.0-11.0) Neutrophils (%) (Auto) 79.7 % (16.0-70.0) Lymphocytes (%) (Auto) 12.6 % (9.0-44.0) Monocytes (%) (Auto) 6.9 % (0.0-8.0) Eosinophils (%) (Auto) 0.6 % (0.0-4.0) Basophils (%) (Auto) 0.2 % (0.0-2.0) Neutrophils # (Auto) 11.3 TH/MM3 (1.8-7.7) Lymphocytes # (Auto) 1.8 TH/MM3 (1.0-4.8) Monocytes # (Auto) 1.0 TH/MM3 (0-0.9) Eosinophils # (Auto) 0.1 TH/MM3 (0-0.4) Basophils # (Auto) 0.0 TH/MM3 (0-0.2) CBC Comment DIFF FINAL Differential Comment Blood Urea Nitrogen 16 MG/DL (7-18) Creatinine 0.99 MG/DL (0.60-1.30) Random Glucose 114 MG/DL (74-106) Calcium Level 8.3 MG/DL (8.5-10.1) Sodium Level 139 MEQ/L (136-145) Potassium Level 4.2 MEQ/L (3.5-5.1) Chloride Level 102 MEQ/L (98-107) Carbon Dioxide Level 31.6 MEQ/L (21.0-32.0) Anion Gap 5 MEQ/L (5-15) Estimat Glomerular Filtration Rate 76 ML/MIN (>89) Result Diagram: 06/26/1740406/26/17404 (1) Coronary artery disease Plan: ASA, statin (2) right thoracotomy Plan: pulm toileting linda ezpadelia OOB,,ambulate CONSUMER AFFAIRS DIRECTOR for pain control leave chest tube in place (3) Lung cancer, upper lobe (4) COPD (chronic obstructive pulmonary disease) Plan: on Valencia Romero Jun 26, 2017 14:52
[2017-06-26] MEDS: DOCUSATE CALCIUM 240 MG CAP PO SCH (21:29)
[2017-06-26] MEDS: PANTOPRAZOLE SOD 40 MG DELAYED RELEASE TAB PO SCH (21:31)
[2017-06-27] VITALS (31 sets, daily range): BP systolic 110–138; BP diastolic 60–70; PULSE 83–117; RESP 16–18; TEMP 97.7–98.8; O2SAT 92–96
[2017-06-27] MEDS: RESP: ALBUTEROL 2.5 MG/3 ML NEB (SCH) NEB ×4 (03:26→21:18)
[2017-06-27] MEDS ORDERED: diphenhydrAMINE HCL 50 MG CAP PO PRN (05:00)
[2017-06-27] MEDS: PCA - TOTAL MG MORPHINE DELIVERED PER SHIFT SCH ×3 (06:00→20:55)
--- NOTE | 2017-06-27 06:07 | RADRPT ---
EXAM DATE/TIME: 06/27/2017 05:25 [facility] COMPARISON: CHEST SINGLE AP, June 26, 2017, 5:09. INDICATIONS : Shortness of breath, possible pneumothorax. MEDICAL HISTORY : Chronic obstructive pulmonary disease. Hypertension Emphysema. SURGICAL HISTORY : Thoracotomy ENCOUNTER: Subsequent ACUITY: 4 - 6 days PAIN SCORE: 0/10 LOCATION: Bilateral chest FINDINGS: A single view of the chest demonstrates a right-sided chest tube is again seen with its tip near the apex. The right hemidiaphragm is elevated. There is a small right pneumothorax patient had a right fi fth rib fracture previously. Minimal consolidation left lung base. CONCLUSION: Small right apical pneumothorax with chest tube in good position. Minimal consolidation left midlung zone. Flex Sargent MD on June 27, 2017 at 6:05 Board Certified Radiologist. This report was verified electronically.
[2017-06-27] MEDS: RESP: BUDESONIDE 0.5 MG/2 ML NEB NEB SCH ×2 (08:49→21:18)
[2017-06-27] MEDS: MORPHINE SULFATE 30 MG/30 ML PCA IV SCH (09:22)
[2017-06-27] MEDS: EZETIMIBE 10 MG TAB PO SCH (09:25)
[2017-06-27] MEDS: MULTIVITAMIN TAB PO SCH (09:25)
[2017-06-27] MEDS: LISINOPRIL 20 MG TAB PO SCH ×2 (09:26→20:53)
[2017-06-27] MEDS: ATORVASTATIN 40 MG TAB PO SCH (09:26)
[2017-06-27] MEDS: HYDROCHLOROTHIAZIDE 12.5 MG CAP PO SCH ×2 (09:26→20:53)
[2017-06-27] MEDS: ASPIRIN EC 81 MG TABEC PO SCH (09:27)
[2017-06-27] MEDS: FLUoxetine HCL 20 MG CAP PO SCH (09:27)
[2017-06-27] MEDS: SODIUM CHLORIDE 0.9% FLUSH 10 ML FLUSH IV FLUSH SCH ×2 (09:27→20:54)
--- NOTE | 2017-06-27 10:25 | PD.CAR.PN ---
CVT Progress Note Subjective/Hospital Course: Mr. Flores is 61-year-old white male with longstanding history of COPD with right upper lobe . He had a bronchoscopy done recently and did not show any endobronchial lesion, and bronchial washings were negative. He had a PET scan done, which was that he has persistent infiltrate in the posterior right upper lobe of the lung with focal area of cavitation and has hypermetabolic activity, which measures SUV 7.4. He has chronic interstitial infiltrate, which is much intense with SUV 8.6. No axillary lymphadenopathy. Right upper lobe cancer PAST MEDICAL HISTORY: Significant for history of COPD, hypertension, coronary artery disease status post stent placed, PAD status post stent placed. surgery: 06/25 Right Thoracotomy, right upper lobectomy 06/26 chest tube to water seal , no air leak drained 50cc/ 12 hrs eval for removal in am using CHECK PROCESSOR for pain control 06/27/17 Continues to have a tiny air leak with cough On oxygen Objective: Vital Signs Date Time Temp Pulse Resp B/P (MAP) Pulse Ox O2 Delivery O2 Flow Rate FiO2 06/27/17 09:22 18 06/27/17 08:49 96 Nasal Cannula 3.00 06/27/17 08:11 92 Nasal Cannula 3.00 06/27/17 08:11 98.8 109 18 138/70 (92) 92 06/27/17 07:00 115 06/27/17 06:00 117 06/27/17 06:00 20 06/27/17 05:00 113 06/27/17 04:58 Nasal Cannula 3.00 06/27/17 04:00 101 06/27/17 03:00 106 06/27/17 02:00 102 06/27/17 01:00 112 06/27/17 00:00 102 06/26/17 23:00 108 06/26/17 23:00 98.8 107 160/87 (111) 94 06/26/17 23:00 94 Nasal Cannula 3.00 06/26/17 22:00 100 06/26/17 21:28 20 06/26/17 21:00 104 06/26/17 20:01 92 Nasal Cannula 2.00 06/26/17 20:00 108 06/26/17 19:00 96 Nasal Cannula 2.00 06/26/17 19:00 102 3/30/18 19:00 98.1 103 133/71 (91) 96 06/26/17 18:00 98 06/26/17 17:00 95 06/26/17 16:00 95 06/26/17 15:30 99.0 94 18 100/56 (71) 95 06/26/17 15:30 96 Nasal Cannula 2.00 06/26/17 15:00 101 06/26/17 14:00 94 06/26/17 13:00 112 06/26/17 11:30 95 Nasal Cannula 2.00 06/26/17 11:30 97.6 102 20 108/63 (78) 95 06/26/17 11:30 102 Result Diagram: 06/26/17 0405 06/26/17 0405 Imaging: Last 24 hours Impressions Chest X-Ray 06/27/17 0600 Signed Impressions: Service Date/Time: Tuesday, June 27, 2017 05:25 - CONCLUSION: Small right apical pneumothorax with chest tube in good position. Minimal consolidation left midlung zone. Flex Sargent MD Cardiovascular: RRR Pulmonary: few crackles bilat GI/: NABS, NT Incision: dry and intact CT: 50ml/12hrs, tiny air leak with cough Plan: Continue chest tubes Incentive spirometer Nebs Wean O2 if possible Discharge planning (1) Coronary artery disease Plan: ASA, statin (2) right thoracotomy Plan: pulm toileting nebs ezpap OOB,,ambulate CHECK PROCESSOR for pain control leave chest tube in place (3) Lung cancer, upper lobe (4) COPD (chronic obstructive pulmonary disease) Plan: on Maribell Fields MD Jun 27, 2017 10:25
[2017-06-27] MEDS ORDERED: ALPRAZolam 0.25 MG TAB PO PRN (11:15)
[2017-06-27] MEDS: PANTOPRAZOLE SOD 40 MG DELAYED RELEASE TAB PO SCH (20:52)
[2017-06-27] MEDS: DOCUSATE CALCIUM 240 MG CAP PO SCH (20:54)
[2017-06-28] VITALS (19 sets, daily range): BP systolic 100–118; BP diastolic 59–67; PULSE 83–118; RESP 16–19; TEMP 97.6–98.9; O2SAT 92–96
[2017-06-28] MEDS: RESP: ALBUTEROL 2.5 MG/3 ML NEB (SCH) NEB ×2 (03:51→09:05)
[2017-06-28] MEDS: PCA - TOTAL MG MORPHINE DELIVERED PER SHIFT SCH (06:00)
--- NOTE | 2017-06-28 06:59 | PD.CAR.PN ---
CVT Progress Note Subjective/Hospital Course: Mr. Flores is 61-year-old white male with longstanding history of COPD with right upper lobe . He had a bronchoscopy done recently and did not show any endobronchial lesion, and bronchial washings were negative. He had a PET scan done, which was that he has persistent infiltrate in the posterior right upper lobe of the lung with focal area of cavitation and has hypermetabolic activity, which measures SUV 7.4. He has chronic interstitial infiltrate, which is much intense with SUV 8.6. No axillary lymphadenopathy. Right upper lobe cancer PAST MEDICAL HISTORY: Significant for history of COPD, hypertension, coronary artery disease status post stent placed, PAD status post stent placed. surgery: 06/25 Right Thoracotomy, right upper lobectomy 06/26 chest tube to water seal , no air leak drained 50cc/ 12 hrs eval for removal in am using DENTAL TREATMENT COORDINATOR for pain control 06/27/17 Continues to have a tiny air leak with cough On oxygen 06/28/17 No complaints, minimal chest tube output, no air leaks. Objective: Vital Signs Date Time Temp Pulse Resp B/P (MAP) Pulse Ox O2 Delivery O2 Flow Rate FiO2 06/28/17 06:00 100 06/28/17 06:00 16 06/28/17 05:00 94 06/28/17 04:00 92 Nasal Cannula 2.00 06/28/17 04:00 97.6 90 16 114/62 (79) 92 06/28/17 04:00 96 06/28/17 03:00 89 06/28/17 02:00 90 06/28/17 01:00 100 06/28/17 00:00 118 06/28/17 00:00 96 Nasal Cannula 2.00 06/27/17 23:30 98.8 96 16 115/62 (79) 92 06/27/17 23:00 100 06/27/17 22:00 100 06/27/17 21:18 92 Nasal Cannula 2.00 06/27/17 21:11 92 Nasal Cannula 2.00 06/27/17 21:00 94 06/27/17 20:59 98.8 83 16 110/62 (78) 92 06/27/17 20:55 16 06/27/17 20:00 100 06/27/17 19:00 95 06/27/17 18:07 103 06/27/17 17:01 97 06/27/17 16:05 95 06/27/17 15:22 94 Nasal Cannula 2.00 06/27/17 15:22 97.7 104 18 112/69 (83) 94 06/27/17 15:00 100 06/27/17 14:00 98 06/27/17 14:00 18 06/27/17 13:00 98 06/27/17 12:00 98 06/27/17 11:21 93 Nasal Cannula 2.00 06/27/17 11:21 98.6 104 18 115/60 (78) 94 06/27/17 11:00 107 06/27/17 10:00 106 06/27/17 09:22 18 06/27/17 09:00 108 06/27/17 08:49 96 Nasal Cannula 3.00 06/27/17 08:11 92 Nasal Cannula 3.00 06/27/17 08:11 98.8 109 18 138/70 (92) 92 06/27/17 08:00 106 06/27/17 07:00 115 Result Diagram: 06/26/17 0405 06/26/17 0405 Cardiovascular: RRR Telemetry: NSR Pulmonary: CTA GI/: NABS, NT Incision: dry and intact CT: ~70ml/24 hrs Plan: Remove chest tube CXR Possible D/C today (1) Coronary artery disease Plan: ASA, statin (2) right thoracotomy Plan: pulm toileting linda ezpap OOB,,ambulate DENTAL TREATMENT COORDINATOR for pain control leave chest tube in place (3) Lung cancer, upper lobe (4) COPD (chronic obstructive pulmonary disease) Plan: on Maribell Fields MD Jun 28, 2017 06:59
--- NOTE | 2017-06-28 07:41 | RADRPT ---
EXAM DATE/TIME: 06/28/2017 07:10 [facility] COMPARISON: CHEST SINGLE AP, June 27, 2017, 5:25. INDICATIONS : <<Followup small right apical pneumothorax status post thoracotomy. Shortness of breath and chest kyra n. MEDICAL HISTORY : Hypertension. Chronic obstructive pulmonary disease. Emphysema. SURGICAL HISTORY : Thoracotomy. ENCOUNTER: Subsequent ACUITY: 2 days PAIN SCORE: 4/10 LOCATION: Bilateral chest FINDINGS: 2 AP erect views of the chest were obtained and again demonstrate the patient status post right thora cotomy with right posterior fourth rib fracture. The previously noted small right apical pneumothorax is no longer visualized. There are no confluent infiltrates or effusions. The heart size remains wit hin normal limits and there is no evidence of pulmonary edema. Mild atherosclerotic changes are again noted in the aorta. There are multiple overlying electrocardiogram leads. The upper abdomen is unrem arkable. CONCLUSION: 1. The previously noted small right apical pneumothorax is no longer visualized. 2. Status post right thoracotomy with no acute cardiac pulmonary disease. There is no evidence of eff usion. Serg Luna MD on June 28, 2017 at 7:37 Board Certified Radiologist. This report was verified electronically.
[2017-06-28] MEDS: MULTIVITAMIN TAB PO SCH (08:21)
[2017-06-28] MEDS: ATORVASTATIN 40 MG TAB PO SCH (08:21)
[2017-06-28] MEDS: ASPIRIN EC 81 MG TABEC PO SCH (08:21)
[2017-06-28] MEDS: FLUoxetine HCL 20 MG CAP PO SCH (08:22)
[2017-06-28] MEDS: HYDROCHLOROTHIAZIDE 12.5 MG CAP PO SCH (08:22)
[2017-06-28] MEDS: LISINOPRIL 20 MG TAB PO SCH (08:22)
[2017-06-28] MEDS: SODIUM CHLORIDE 0.9% FLUSH 10 ML FLUSH IV FLUSH SCH (08:22)
[2017-06-28] MEDS: EZETIMIBE 10 MG TAB PO SCH (08:22)
[2017-06-28] MEDS: oxyCODONE/ACETAMINOPHEN 7.5 MG/325 MG TAB PO PRN ×2 (08:23→14:19)
--- NOTE | 2017-06-28 08:33 | HHI.FF ---
Face to Face Verification Diagnosis: (1) Lung cancer, upper lobe (2) COPD (chronic obstructive pulmonary disease) (3) Coronary artery disease Physical Therapy Order: Evaluate and Treat Home Health Nursing Order: Medical education Signs/symptoms of disease process Oxygen administration education Nursing assessment with vital signs I have seen patient Flex Flores on 06/28/17. My clinical findings support the need for the requested home health care services because: Patient has SOB Deconditioned w/ increased weakness Limited ability to care for self I certify that my clinical findings support that this patient is homebound because: Post-op weakness Hx COPD- exertion dyspnea/weakness Unsafe to leave home unassisted Maribell Jessica MD Jun 28, 2017 08:33
[2017-06-28] MEDS ORDERED: DOCU1CAP26 PO (08:37)
[2017-06-28] MEDS ORDERED: OXYC1TAB35 PO (08:37)
--- NOTE | 2017-06-28 08:48 | HHI.DS ---
Discharge Summary Admission Date Jun 25, 2017 at 05:26 Discharge Date: Jun 28, 2017 Admitting Diagnosis Lung cancer COPD CAD (1) Coronary artery disease Diagnosis: Secondary ICD Codes: I25.10 - Atherosclerotic heart disease of [place] coronary artery without angina pectoris (2) COPD (chronic obstructive pulmonary disease) Diagnosis: Secondary ICD Codes: J44.9 - Chronic obstructive pulmonary disease, unspecified (3) Lung cancer, upper lobe Diagnosis: Principal ICD Codes: C34.10 - Malignant neoplasm of upper lobe, unspecified bronchus or lung (4) Hyperlipidemia Diagnosis: Secondary ICD Codes: E78.5 - Hyperlipidemia, unspecified (5) HTN (hypertension) Diagnosis: Secondary ICD Codes: I10 - Essential (primary) hypertension (6) Tobacco abuse Diagnosis: Secondary ICD Codes: Z72.0 - Tobacco use (7) Hemoptysis Diagnosis: Principal ICD Codes: R04.2 - Hemoptysis Status: Resolved Procedures Right upper love resection with lymph node sampling Brief History Mr. Flores is 61-year-old white male with longstanding history of COPD who presented with scant hemoptysis. He had a bronchoscopy done recently and did not show any endobronchial lesion, and bronchial washings were negative. CT guided percutaneous biopsy showed moderately differentiated adenocarcinoma. He had a PET scan done, which was that he has persistent infiltrate in the posterior right upper lobe of the lung with focal area of cavitation and has hypermetabolic activity, which measures SUV 7.4. He has chronic interstitial infiltrate, which is much intense with SUV 8.6. No axillary lymphadenopathy. Right upper lobe cancer PAST MEDICAL HISTORY: Significant for history of COPD, hypertension, coronary artery disease status post stent placed, PAD status post stent placed. CBC/BMP: 06/26/17 0405 06/26/17 0405 Significant Findings Laboratory Tests Test 06/25/17 12:39 06/26/17 04:05 White Blood Count 16.1 TH/MM3 (4.0-11.0) 14.2 TH/MM3 (4.0-11.0) Red Blood Count 3.78 MIL/MM3 (4.50-5.90) 3.92 MIL/MM3 (4.50-5.90) Hemoglobin 11.4 GM/DL (13.0-17.0) 11.9 GM/DL (13.0-17.0) Hematocrit 33.7 % (39.0-51.0) 34.9 % (39.0-51.0) Neutrophils (%) (Auto) 90.4 % (16.0-70.0) 79.7 % (16.0-70.0) Lymphocytes (%) (Auto) 5.1 % (9.0-44.0) Neutrophils # (Auto) 14.5 TH/MM3 (1.8-7.7) 11.3 TH/MM3 (1.8-7.7) Lymphocytes # (Auto) 0.8 TH/MM3 (1.0-4.8) Monocytes # (Auto) 1.0 TH/MM3 (0-0.9) Random Glucose 114 MG/DL (74-106) Calcium Level 8.3 MG/DL (8.5-10.1) Estimat Glomerular Filtration Rate 76 ML/MIN (>89) Imaging Last Impressions Chest X-Ray 06/28/17 0000 Signed Impressions: Service Date/Time: Wednesday, June 28, 2017 07:10 - CONCLUSION: 1. The previously noted small right apical pneumothorax is no longer visualized. 2. Status post right thoracotomy with no acute cardiac pulmonary disease. There is no evidence of effusion. Serg Luna MD PE at Discharge chest - CTA COR - RRR ABD - soft, NT Wound - dry and intact Hospital Course surgery: 06/25 Right Thoracotomy, right upper lobectomy 06/26 chest tube to water seal , no air leak drained 50cc/ 12 hrs eval for removal in am using ORE TESTER for pain control 06/27/17 Continues to have a tiny air leak with cough On oxygen 06/28/17 No complaints, minimal chest tube output, no air leaks. Pt Condition on Discharge: Good Discharge Disposition: Disch w/ Home Health Serv Discharge Instructions DIET: Follow Instructions for: Heart Healthy Diet Activities you can perform: Weight Bearing as [place], Shower Only-No Bath Activities to avoid: Lifting/Bending, Strenuous Activity, Driving Follow up Referrals: Appointment for Follow Up - 4 Weeks with Carter Aguilar MD PCP Follow-up - 2 Weeks with [facility] - 2 Weeks with Maribell Jessica MD New Orders: X-RAY CHEST PA & LAT - 2 Weeks New Medications: Docusate Calcium (Sm Stool Softener) 240 Mg Cap 240 MG PO HS for Constipation, #14 CAP Oxycodone HCl/Acetaminophen (Oxycodon-Acetaminophen 7.5-325) 7.5 Mg-325 Mg Tablet 1 TAB PO Q6H PRN for PAIN 1 TO 10 AND/OR AGITATION, #30 TAB Continued Medications: Aspirin DR (Aspirin EC) 81 Mg Tabdr 81 MG PO DAILY, TAB 0 Refills Clopidogrel (Plavix) 75 Mg Tab 75 MG PO DAILY for Blood Clot Prevention, #30 TAB 0 Refills Ezetimibe (Zetia) 10 Mg Tab 10 MG PO DAILY, #30 TAB 0 Refills Fluoxetine (Prozac) 20 Mg Cap 20 MG PO DAILY, #30 CAP 0 Refills Lisinopril-Hctz (Lisinopril-Hctz) 20-12.5 Mg Tab 1 TAB PO BID for Blood Pressure Management, #30 TAB 0 Refills Multiple Vitamin (Multi-Vitamin Daily) 1 Tab Tab 1 TAB PO DAILY for Nutritional Supplement, TAB 0 Refills Nitroglycerin SL (Nitrostat SL) 0.4 Mg Subl 0.4 MG SL DIRECTED PRN for CHEST PAIN, #100 TAB.SL 0 Refills 1 tablet under the tongue as needed for chest pain. Repeat every 5 minutes for a total of 3 DOSES or call 911 if NO relief. Rosuvastatin (Crestor) 20 Mg Tab 20 MG PO DAILY for Cholesterol Management, #30 TAB 0 Refills Additional Information PATH pending Walk test for home oxygen ordered. Maribell Jessica MD Jun 28, 2017 08:48
[2017-06-28] MEDS: RESP: BUDESONIDE 0.5 MG/2 ML NEB NEB SCH (09:05)
[2017-06-28] MEDS ORDERED: OXYGENDME NAS.CANULA (14:01)
== END 2017-06-28 16:25 | disposition home health service (06) | DRG 164 ==
LOC: HSDI 05:26 → EDSTATUS 07:30 → HCPC 13:30
PROVIDERS: ADMIT Thoracic Surgery (Cardiothoracic Vascular Surgery); ATTEND Thoracic Surgery (Cardiothoracic Vascular Surgery)
PROC: 0BTC0ZZ Resection of Right Upper Lung Lobe, Open Approach (ICD-10-PCS; 2017-06-25)
PROC: 07B70ZX Excision of Thorax Lymphatic, Open Approach, Diagnostic (ICD-10-PCS; principal; 2017-06-25 07:17)
DX: C34.11 Malignant neoplasm of upper lobe, right bronchus or lung (principal); C77.1 Secondary and unspecified malignant neoplasm of intrathoracic lymph nodes; J95.812 Postprocedural air leak; J44.9 Chronic obstructive pulmonary disease, unspecified; R04.2 Hemoptysis; I73.9 Peripheral vascular disease, unspecified; I25.10 Atherosclerotic heart disease of native coronary artery without angina pectoris; I10 Essential (primary) hypertension; E78.5 Hyperlipidemia, unspecified; Z72.0 Tobacco use; Z95.5 Presence of coronary angioplasty implant and graft; Z95.820 Peripheral vascular angioplasty status with implants and grafts
CPT/HCPCS: 71045; 80048; 82948; 85025; 86850; 86900; 86901; 86920; 88305; 88307; 88309; 94150; 94618; 94640; 94664; J0131; J0690; J1885; J1940; J2250; J2270; J2370; J2405; J2710; J3010; J7040; J7050; J7120; J7613; J7626; Q0163